=== PATIENT | female | born 1955 | race African-American/Black ===

== ENCOUNTER 2018-03-19 13:37 | Emergency (ER) | payer MEDICARE, MEDICAID ==
[~2018-03-19] VITALS: Ht 167.6 cm; Wt 73.0 kg
[~2018-03-19 13:37] MED LIST: ALBUTEROL; CELEXA; LORAZEPAM; QVAR; WELLBUTRIN
[2018-03-19 15:21] LABS: BASOPHILS % 0.8 % (0.0-2.0); EOSINOPHILS % 0.9 % (0.0-5.0); HEMATOCRIT. 36.4 % (36.0-48.0); HEMOGLOBIN. 12.2 g/dL (12.0-16.0); LYMPHOCYTES % 34.8 % (20.0-50.0); MEAN CORPUSCULAR HEMOGLOBIN 27.9 pg (28.0-32.0); MEAN CORPUSCULAR VOLUME 83.4 fL (81.0-99.0); NEUTROPHILS % 59.5 % (40.0-76.0); PLATELET 349 x1000/uL (130-400); RED BLOOD CELL COUNT 4.37 mill/uL (4.2-5.4); RED CELL DISTRIBUTION WIDTH 15.2 % (11.6-14.6)
[2018-03-19 15:28] LABS: CHLORIDE 105 mEq/L (98-107)
[2018-03-19] MEDS ORDERED: NICOTINE 14MG PATCH TD ONE (15:30)
[2018-03-19 15:34] LABS: ETHANOL BLOOD < 10 mg/dL
[2018-03-19] MEDS ORDERED: IBUPROFEN 600MG TABLET PO STA (15:49)
[2018-03-19] MEDS ORDERED: LORAZEPAM 2MG/ML CPJ IM ONE (21:00)
[2018-03-19] MEDS ORDERED: HALOPERIDOL LACTATE 5MG/ML VIAL IM ONE (21:45)
[2018-03-20 08:24] LABS: CLARITY URINE CLEAR (CLEAR); COLOR URINE YELLOW (YELLOW); KETONES URINE NEGATIVE (NEGATIVE); LEUKOCYTE ESTERASE URINE NEGATIVE (NEGATIVE); NITRITE URINE NEGATIVE (NEGATIVE); OCCULT BLOOD URINE TRACE (NEGATIVE); PH URINE 5.5 (4.5-8.0); PROTEIN URINE NEGATIVE (NEGATIVE); SPECIFIC GRAVITY URINE 1.024 (1.005-1.030)
[2018-03-20 08:52] LABS: CANNABINOID URINE SCREEN PRESUMTIVE POSITIVE (NEGATIVE)
[2018-03-20 08:53] LABS: *AMPHETAMINES SCREEN URINE NEGATIVE (NEGATIVE); *BARBITURATES SCREEN URINE NEGATIVE (NEGATIVE); *BENZODIAZEPINES SCREEN URINE NEGATIVE (NEGATIVE); *COCAINE SCREEN URINE NEGATIVE (NEGATIVE); METHADONE URINE SCREEN NEGATIVE (NEGATIVE)
[2018-03-20 08:54] LABS: OPIATES URINE SCREEN NEGATIVE (NEGATIVE); PHENCYCLIDINE URINE SCREEN NEGATIVE (NEGATIVE)
[2018-03-20 12:38] VITALS: BP 152/77
== END 2018-03-20 13:08 ==
LOC: ER 14:08
DX: R45.851 Suicidal ideations (principal); F41.9 Anxiety disorder, unspecified; F31.9 Bipolar disorder, unspecified; F12.10 Cannabis abuse, uncomplicated; F17.200 Nicotine dependence, unspecified, uncomplicated; Z91.040 Latex allergy status
CPT/HCPCS: 36415; 80053; 80305; 80307; 80329; 81003; 85025; 93005; 96372; 99285; G0482; J1630; J2060

== ENCOUNTER 2019-05-15 18:42 | Inpatient (IN) | payer MEDICARE, MEDICAID ==
[~2019-05-15] VITALS: Ht 160 cm; Wt 69.1 kg
[2019-05-15] MEDS ORDERED: SODIUM CHLORIDE 0.9% 1,000 ML IV ONE (19:57)
[2019-05-15 20:47] LABS: BASOPHILS % 0.8 % (0.0-2.0); EOSINOPHILS % 0.5 % (0.0-5.0); HEMATOCRIT. 36.2 % (36.0-48.0); HEMOGLOBIN. 12.2 g/dL (12.0-16.0); LYMPHOCYTES % 17.8 % (20.0-50.0); MEAN CORPUSCULAR HEMOGLOBIN 28.5 pg (28.0-32.0); MEAN CORPUSCULAR VOLUME 84.9 fL (81.0-99.0); MEAN PLATELET VOLUME 8.1 fl (7.4-10.4); MONOCYTES % 5.4 % (2.0-8.0); NEUTROPHILS % 75.5 % (40.0-76.0); PLATELET 259 x1000/uL (130-400); RED BLOOD CELL COUNT 4.26 mill/uL (4.2-5.4); RED CELL DISTRIBUTION WIDTH 14.4 % (11.6-14.6)
[2019-05-15 20:53] LABS: CHLORIDE 107 mEq/L (98-107)
[2019-05-15 20:56] LABS: PARTIAL THROMBOPLASTIN TIME 25.7 sec (23.4-31.0); PROTHROMBIN TIME 10.3 sec (9.6-11.0)
[2019-05-15 20:57] LABS: ETHANOL BLOOD < 10 mg/dL
[2019-05-15 22:05] LABS: CLARITY URINE CLEAR (CLEAR); COLOR URINE YELLOW (YELLOW); KETONES URINE TRACE (NEGATIVE); LEUKOCYTE ESTERASE URINE 2+ (NEGATIVE); NITRITE URINE NEGATIVE (NEGATIVE); OCCULT BLOOD URINE 1+ (NEGATIVE); PROTEIN URINE NEGATIVE (NEGATIVE); SPECIFIC GRAVITY URINE 1.022 (1.005-1.030)
[2019-05-15 22:18] LABS: *AMPHETAMINES SCREEN URINE NEGATIVE (NEGATIVE)
[2019-05-15 22:19] LABS: *BARBITURATES SCREEN URINE NEGATIVE (NEGATIVE); *BENZODIAZEPINES SCREEN URINE NEGATIVE (NEGATIVE); *COCAINE SCREEN URINE NEGATIVE (NEGATIVE); CANNABINOID URINE SCREEN PRESUMTIVE POSITIVE (NEGATIVE); METHADONE URINE SCREEN NEGATIVE (NEGATIVE); OPIATES URINE SCREEN NEGATIVE (NEGATIVE); PHENCYCLIDINE URINE SCREEN NEGATIVE (NEGATIVE)
[2019-05-16] MEDS ORDERED: CEFTRIAXONE 1 G PREMIX 50 ML IV ONE (00:45)
[2019-05-16] MEDS ORDERED: ACETAMINOPHEN 325MG TABLET PO PRN (03:00)
[2019-05-16] MEDS ORDERED: MAGNESIUM/ALUMINUM HYDROXIDE/SIMETHICONE 30ML UDC PO PRN (03:00)
[2019-05-16] MEDS ORDERED: ONDANSETRON HCL 4MG/2ML INJ IV PRN (03:00)
[2019-05-16] MEDS ORDERED: CLONIDINE 0.1MG TABLET PO PRN (03:00)
[2019-05-16] MEDS: SODIUM CHLORIDE 0.9% 1,000 ML IV SCH (07:32)
[2019-05-16] MEDS ORDERED: LORAZEPAM 1MG TABLET PO NR (18:00)
[2019-05-16] MEDS ORDERED: CITALOPRAM HYDROBROMIDE 10MG TABLET PO NR (18:00)
[2019-05-16] MEDS: NICOTINE 21MG PATCH TD SCH (18:45)
[2019-05-16] MEDS: DIPHENHYDRAMINE 50MG/ML VIAL IV PRN (19:34)
[2019-05-16 23:00] VITALS: BP 148/72
[2019-05-16] MEDS ORDERED: LURA60TA PO (23:57)
[2019-05-16] MEDS ORDERED: CITA10SO PO (23:58)
[2019-05-16] MEDS ORDERED: ASPI-1393 PO (23:59)
[2019-05-16] MEDS ORDERED: LORA-250 PO (23:59)
[2019-05-17] MEDS ORDERED: [UNRECOGNIZED DRUG - CODE] PO
[2019-05-17] MEDS: DIPHENHYDRAMINE 50MG/ML VIAL IV PRN (03:31)
[2019-05-17] MEDS: SODIUM CHLORIDE 0.9% 1,000 ML IV SCH ×2 (03:32→10:05)
[2019-05-17 04:00] VITALS: BP 124/62
[2019-05-17 08:00] VITALS: BP 132/70
[2019-05-17] MEDS: NICOTINE 21MG PATCH TD SCH (10:04)
[2019-05-17 12:00] VITALS: BP 144/66
[2019-05-17 16:00] VITALS: BP 146/80
[2019-05-17 16:21] LABS: BASOPHILS % 0.5 % (0.0-2.0); EOSINOPHILS % 0.8 % (0.0-5.0); HEMATOCRIT. 36.2 % (36.0-48.0); LYMPHOCYTES % 38.4 % (20.0-50.0); MEAN CORPUSCULAR HEMOGLOBIN 28.3 pg (28.0-32.0); MEAN CORPUSCULAR VOLUME 85.3 fL (81.0-99.0); MEAN PLATELET VOLUME 8.5 fl (7.4-10.4); MONOCYTES % 4.4 % (2.0-8.0); NEUTROPHILS % 55.9 % (40.0-76.0); PLATELET 262 x1000/uL (130-400); RED BLOOD CELL COUNT 4.25 mill/uL (4.2-5.4); RED CELL DISTRIBUTION WIDTH 14.4 % (11.6-14.6)
[2019-05-17 16:35] LABS: CHLORIDE 110 mEq/L (98-107)
[2019-05-17] MEDS ORDERED: LORAZEPAM 1MG TABLET PO PRN (17:00)
[2019-05-17] MEDS ORDERED: NON FORMULARY PATIENT HOME MED XX SCH (17:00)
[2019-05-17] MEDS ORDERED: ESCITALOPRAM 10MG XX SCH (17:00)
[2019-05-17] MEDS ORDERED: CITALOPRAM HYDROBROMIDE 10MG TABLET PO SCH (18:00)
[2019-05-18] MEDS ORDERED: ASPIRIN 81MG TABLET PO SCH (09:00)
== END 2019-05-17 20:40 | disposition home or self-care (01) | DRG 74 ==
LOC: ER 18:42 → EDBEDREQTM 23:51 → EDBEDREQ 23:51 → 6WST 05-16 00:36 → EDBEDREQDT 05-16 00:41 → EDBEDREQTM 05-16 00:41 → EDBEDREQ 05-16 00:41 → ENRESERV 05-16 21:36
PROVIDERS: ADMIT Internal Medicine; ATTEND Internal Medicine
DX: G90.8 Other disorders of autonomic nervous system (principal); G93.40 Encephalopathy, unspecified; F31.9 Bipolar disorder, unspecified; M19.90 Unspecified osteoarthritis, unspecified site; F41.9 Anxiety disorder, unspecified; Z88.2 Allergy status to sulfonamides; Z91.040 Latex allergy status
CPT/HCPCS: 36415; 71045; 80048; 80305; 80320; 81003; 83880; 84443; 84484; 93005; 99285; J0696; J1200; J7030; G0480